=== PATIENT | female | born 1960 | race Two or more races ===

== ENCOUNTER → 2018-11-12 | Day surgery (SDC) | payer OTHER | END | disposition home or self-care (01) | LOC: ADM 11-05 15:00 → AMB-ENDOS 09:37 | DX: K57.32 Diverticulitis of large intestine without perforation or abscess without bleeding (principal); K64.2 Third degree hemorrhoids ==

== ENCOUNTER 2018-12-03 11:32 | Inpatient (IN) | payer OTHER ==
[~2018-12-03] VITALS: Ht 165.1 cm; Wt 65.8 kg
[2018-12-28] MEDS ORDERED: SIMVASTATIN20 MG PO (08:10)
[2018-12-28] MEDS ORDERED: VITAMIN D1000 UNIT PO (08:10)
[2018-12-28] MEDS ORDERED: PNEU16DI2 (08:11)
[2018-12-31] MEDS ORDERED: OXYC1TAB9 PO (08:12)
[2018-12-31] MEDS ORDERED: ACIDOPHILUS-PE1 EAC2 PO (08:13)
[2018-12-31] MEDS ORDERED: POLY119PG PO (08:13)
== END 2018-12-31 09:25 | disposition home or self-care (01) | DRG 331 ==
LOC: SURG 12-21 13:30 → O/R 12-28 05:20 → SURG 12-28 07:00
PROVIDERS: ADMIT Colon & Rectal Surgery
PROC: 0DJD8ZZ Inspection of Lower Intestinal Tract, Via Natural or Artificial Opening Endoscopic (ICD-10-PCS; 2018-12-28)
PROC: 0DTN4ZZ Resection of Sigmoid Colon, Percutaneous Endoscopic Approach (ICD-10-PCS; principal; 2018-12-28 07:00)
DX: K57.20 Diverticulitis of large intestine with perforation and abscess without bleeding (principal); K58.8 Other irritable bowel syndrome; E78.00 Pure hypercholesterolemia, unspecified; I10 Essential (primary) hypertension